=== PATIENT | male | born 1960 | race Caucasian/White ===

== ENCOUNTER → 2024-01-17 06:21 | Day surgery (SDC) | payer BC, SELFPAY | LOC: GI 06:21 | PROVIDERS: ATTENDING PHYSICIAN Internal Medicine Gastroenterology; FAMILY PHYSICIAN Family Medicine | DX: Z12.11 Encounter for screening for malignant neoplasm of colon (principal); D12.0 Benign neoplasm of cecum; D12.2 Benign neoplasm of ascending colon; D12.3 Benign neoplasm of transverse colon; D12.5 Benign neoplasm of sigmoid colon; K63.5 Polyp of colon; K57.30 Diverticulosis of large intestine without perforation or abscess without bleeding; K64.0 First degree hemorrhoids | CPT/HCPCS: 45385; 45380; 88305 ==

== ENCOUNTER 2024-02-17 08:06 | Day surgery (SDC) | payer BC, SELFPAY ==
[2024-02-17 14:07] VITALS: BMI 32.2
[2024-02-17 14:08] VITALS: BMI 32.2
[2024-02-17 14:09] VITALS: BP 148/95
[2024-02-17 17:36] VITALS: BP 125/90
[2024-02-17 17:45] VITALS: BP 128/97
[2024-02-17 18:00] VITALS: BP 141/93
== END 2024-02-17 18:15 | disposition home or self-care (01) ==
LOC: GI 08:06
PROVIDERS: ATTENDING PHYSICIAN Internal Medicine Gastroenterology
DX: D12.0 Benign neoplasm of cecum (principal); K64.0 First degree hemorrhoids; D12.6 Benign neoplasm of colon, unspecified
CPT/HCPCS: 45390; 88305

== ENCOUNTER → 2024-05-29 09:20 | Outpatient (REF) | payer BC, SELFPAY ==
[2024-05-29 15:32] LABS: Blood Urea Nitrogen 23 mg/dl (9-20); Calcium 9.8 mg/dl (8.4-10.2); Carbon Dioxide 27 mmol/L (22-30); Chloride 104 mmol/L (98-107); Glucose 102 mg/dl (70-99); Potassium 4.3 mmol/L (3.5-5.1); Sodium 143 mmol/L (135-145); eGFR 55.78
== END ==
LOC: RCS 09:20
PROVIDERS: ATTENDING PHYSICIAN Student in an Organized Health Care Education/Training Program; FAMILY PHYSICIAN Family Medicine
DX: Z01.818 Encounter for other preprocedural examination (principal)
CPT/HCPCS: 36415; 80048; 93005

== ENCOUNTER 2024-08-30 09:43 | Day surgery (SDC) | payer BC, SELFPAY ==
[2024-08-30 12:51] VITALS: BMI 31.6
[2024-08-30 12:54] VITALS: BP 148/91
[2024-08-30 15:00] VITALS: BP 145/131
[2024-08-30 15:01] VITALS: BP 124/88
[2024-08-30 15:15] VITALS: BP 129/84
[2024-08-30 15:30] VITALS: BP 122/84
== END 2024-08-30 15:30 | disposition home or self-care (01) ==
LOC: GI 09:43
PROVIDERS: ATTENDING PHYSICIAN Internal Medicine Gastroenterology
DX: Z09 Encounter for follow-up examination after completed treatment for conditions other than malignant neoplasm (principal); Z86.0101 Personal history of adenomatous and serrated colon polyps; K64.0 First degree hemorrhoids; D12.0 Benign neoplasm of cecum; D12.2 Benign neoplasm of ascending colon; Z98.890 Other specified postprocedural states
CPT/HCPCS: 45388; 45385; 88305